=== PATIENT | female | born 1985 | race Two or more races ===

== ENCOUNTER 2021-03-05 23:32 | Emergency (ER) | payer MEDICAID, OTHER ==
[~2021-03-05] VITALS: Ht 167.6 cm; Wt 61.2 kg
--- NOTE | 2021-03-05 23:35 | NUR ---
PT THEA FROM STREET S/P SEIZURE. PT STATES SHE HAS HX SEIZURE, UNCOMPLIANT WITH MEDICATION. NO TRAUMA NOTED ON ARRIVAL. PT AAOX4. RESPIRATIONS EVEN AND UNLABORED. VITAL SIGNS STABLE. NO ACUTE DISTRESS NOTED AT THIS TIME. SEIZURE PRECAUTIONS INITIATED. PLACED ON MONITOR, WILL CONTINUE TO MONITOR
[2021-03-06] MEDS ORDERED: IV NS 0.9% 500 ML BAG IV ONE
--- NOTE | 2021-03-06 00:10 | NUR ---
IV INITIATED R WRIST 20G. LABS DRAWN FROM SITE. REGIONAL PRODUCTION MANAGER AT BEDSIDE FOR COLLECTION. IV INTACT AND PATENT, PLACED ON SALINE LOCK
[2021-03-06 00:31] LABS: HEMATOCRIT 33 % (33-45); HEMOGLOBIN 9.9 g/dL (11.5-14.8)
[2021-03-06 00:33] LABS: BASOPHILS % (AUTO) 0.5 % (0.0-2.0); EOSINOPHILS % (AUTO) 0.6 % (0.0-6.0); LYMPHOCYTES % (AUTO) 12.2 % (20.0-44.0); MEAN CORPUSCULAR HGB CONC 30 g/dl (31.0-36.0); MEAN CORPUSCULAR VOLUME 66 fL (82-100); MONOCYTES # (AUTO) 0.5 /CMM (0.1-1.30); MONOCYTES % (AUTO) 6.3 % (2.0-12.0); NEUTROPHILS # (AUTO) 6.9 /CMM (1.8-8.9); NEUTROPHILS % (AUTO) 80.4 % (43.0-81.0); PLATELET COUNT (AUTO) 227 /CMM (150-450); RED BLOOD CELL COUNT(AUTO) 5.02 MIL/uL (4.0-5.2); WHITE BLOOD COUNT (AUTO) 8.6 K/uL (4.3-11.0)
--- NOTE | 2021-03-06 00:33 | NUR ---
Note azar in EDM - 03/06/21 at 0034 by KARLY PT UNABLE TO PROVIDE URINE SAMPLE AT THIS TIME. PT DENIES POSSIBLE CHANCE OF , REFUSING TO SIGN WAIVER. PT ALSO REFUSING HEAD CT, AWARE.
--- NOTE | 2021-03-06 00:34 | NUR ---
PT UNABLE TO PROVIDE URINE SAMPLE AT THIS TIME. PT DENIES POSSIBLE CHANCE OF , REFUSING TO SIGN WAIVER. PT ALSO REFUSING HEAD CT. RISKS AND BENEFITS EXPLAINED TO PATIENT, PT VERBALIZED UNDERSTANDING. AWARE
[2021-03-06 00:37] LABS: ALANINE AMINOTRANSFERASE 22 U/L (12-78); ALBUMIN 3.4 g/dL (3.4-5.0); ALCOHOL, BLOOD < 3 mg/dL (0-0); ALKALINE PHOSPHATASE 111 U/L (46-116); ASPARTATE AMINOTRANSFERASE 35 U/L (15-37); BILIRUBIN,TOTAL 0.1 mg/dL (0.2-1.0); CARBON DIOXIDE 26 mmol/L (21-32); CHLORIDE 105 mmol/L (98-107); CREATININE 0.7 mg/dL (0.6-1.3); GLUCOSE 90 mg/dL (74-106); POTASSIUM 3.9 mmol/L (3.5-5.1); SODIUM SERUM 140 mmol/L (136-145); TOTAL PROTEIN, SERUM 7.3 g/dL (6.4-8.2); UREA NITROGEN, BLOOD 9 mg/dL (7-18)
--- NOTE | 2021-03-06 00:56 | NUR ---
Patient given written and verbal discharge instructions. Patient verbalizes understanding of instructions. Patient is ambulatory with steady gait. Refuses offer of fpc placement. Patient given list of available shelters in surrounding area.IV removed. Catheter intact and site benign. Pressure and 4x4 applied to site. No bleeding noted.Pt ambulatory with a steady gait
[2021-03-06 00:58] VITALS: BP 124/86
[2021-03-06 01:04] LABS: EOSINOPHILS % (MANUAL) 2 % (0-4); LYMPHOCYTES % (MANUAL) 11 % (16-48); MONOCYTES % (MANUAL) 7 % (0-11.0); NEUTROPHILS % (MANUAL) 80 (42-76)
== END 2021-03-06 00:58 | disposition home or self-care (01) ==
LOC: ER 23:33
DX: G40.909 Epilepsy, unspecified, not intractable, without status epilepticus (principal)
CPT/HCPCS: 36415; 80048; 80076; 80320; 85007; 85025; 99283; J7040; G0480

== ENCOUNTER 2021-03-06 02:24 | Emergency (ER) | payer MEDICAID ==
[~2021-03-06] VITALS: Ht 167.6 cm; Wt 61.2 kg
[2021-03-06 02:26] VITALS: BP 134/91
--- NOTE | 2021-03-06 02:29 | NUR ---
[address]IBRA[address] FROM [address] PER RA, PT C/O GENERALIZED WEAKNESS. PT RECENTLY SEEN AND DISCHARGED FROM [facility] X2HR AGO. PER RA, PT REFUSED EKG EN ROUTE. PT DENIES SOB, CP, PAIN ON ARRIVAL. REQUESTING FOOD SAFETY MANAGER. VITAL SIGNS STABLE. PT PLACED ON MONITOR, WILL CONTINUE TO MONITOR.
--- NOTE | 2021-03-06 08:03 | NUR ---
PATIENT IS WAITING ON TECHNICAL FELLOW.
--- NOTE | 2021-03-06 09:57 | NUR ---
CALLED CLAIM TAKER FOR CONSULT.
--- NOTE | 2021-03-06 10:30 | NUR ---
PATIENT SEEN AND EVALUATED BY OPERATING ROOM TECH BASILIA, REFUSED TO SIGN HOMELESS WAIVER. RESOURCES PROVIDED. Patient given written and verbal discharge instructions. Patient verbalizes understanding of instructions. Patient is ambulatory with steady gait. Refuses offer of retirement placement. Patient given list of available shelters in surrounding area.
--- NOTE | 2021-03-06 11:36 | NUR ---
SS Consult for homelessness: The pt. is 35 year old Black female. SW met with pt. teddy in ED. Pt. is sleeping and rousable to verbal touch. The pt. is alert & oriented. Pt. requested a tent. SW informed pt. that we do not have tents to give her. SW also offered pt. retirement placement and pt. refused. Pt. stated "no thank you, I'll just find my own way then". SW attempted to complete biospychosocial assessment. Pt. wanted to leave and refused to continue with interview. Pt. refused to sign homeless waiver. SW provided pt. with the following homeless resources and pt. refused to accept them: Substance Abuse resources provided included: [facility] Substance Abuse Self-Helpline ([facility]) ; CRI [facility]LP [address] [facility] [place] [id number] ; [facility] [address] [facility] [address] ; [facility] [address] [facility] [address] ; [facility] [address] ; [facility] [address] [facility] [address] ; [facility] 9[address] [facility] [id number] ; [facility] Substance Abuse Helpline([facility])-[facility] ; [facility] ; [facility] [place]; [facility] [place]; [facility] [place]; [place] [facility] [place]; [place]; [facility], [facility]. [place]; Alcoholics Anonymous -SFV; Pw-Fslh-Ejxdhwf ; Marijuana Anonymous -SFV; Narcotics Anonymous www.na.org; Year-round shelters: [facility] [address] [place] [address] ; [facility] [place] [address] [place] [address]; [place] [facility] [address] [facility] [address] Winter Shelters: [facility] Provider: [facility] [place] Address: [address] [place], [address] # of Beds: 47 Population Served: [facility] 6 | [facility] Kathy Prettyhune [place] Provider: Home at Last Address: [address], [address] # of Beds: 66 Population Served: [facility] [employer] [place] Provider: First to Serve Address: [address] [facility], [address] # of Beds: 56 Population Served: [facility] Dada [place] Provider: /Ms. Simental'noelle House Address: [address] [place] [address], [address] # of Beds: 49 Population Served: [facility] 8 | [facility] Provider: First to Serve Address: [address] [facility], [address] # of Beds: 37 Population Served: [facility] Hygiene: [facility]: [address] Rod ; [facility] [address] [facility] ; [facility] [address] . Food Resources: [place] [facility] at [facility]- [address] [place]; Meet Each Need with Dignity ([facility]) [address]; [facility] Food [facility] 4[address] [facility]; [facility] [address] [place] shelia Mirandaka. Mental Health resources provided: [facility] [address] [place] [address] ; [facility] [place] [facility] [address] [facility] [address], [place] [address] ; [facility] [address] [place] [address] ; [facility] [address] [place], [place] [id number] Healthcare Clinics: [facility] [address] [facility], [address] [place]. [place] ; [facility] [address] [facility] [address] [place] [address]; [facility] [address] [facility] [place] [phone]) [phone] Counseling--Outpatient [facility] [address] [facility], [place] [address] (Specializes in in-depth psychotherapy for emotional distress: anxiety, depression, interpersonal conflicts, life transitions, childhood abuse) [facility] Guidance Center [address] [place] [address] (Assist with solving problem marital difficulties, separation & divorce, aging parents, & grief, chronic & terminal illness) [facility] [address] [place] [address] (Deal with loss & grief, anxiety, marital difficulties) Homebound/Mental Health Services [address] [facility], [address] [place], [place] [address] (Provide in-home mental services to people who are incapable of leaving their homes) [facility] Needs of the Elderly Senior Service/Resource Center [address] [place] [address] [facility] [address] [facility] [place] [address] PSYCHIATRIC OUTPATIENT SERVICES [facility] Partial Hospitalization and Intensive Outpatient Program (Managed Care and [place] Only)[address] [address]. [facility] [phone] [facility] Partial Hospitalization and Outpatient [id number] [address]. [address] [place], [place] [phone] [facility] Partial Hospitalization and Outpatient [id number] [place], [place] [phone] [facility] Mental Health [place] Scf[address]397 Lu[address] Maria [facility]. [address] [place], [place] [phone] [facility] Partial Hospitalization and Outpatient [id number] [place], [phone]
== END 2021-03-06 11:17 | disposition home or self-care (01) ==
LOC: ER 02:26
DX: R53.1 Weakness (principal); G40.909 Epilepsy, unspecified, not intractable, without status epilepticus; Z59.0 Homelessness